=== PATIENT | female | born 1975 | race Caucasian/White ===

== ENCOUNTER 2016-04-22 17:55 | Emergency (ER) | payer BC ==
[2016-04-22] MEDS ORDERED: NS 0.9% 1000 ML* 1,000 ML IV ONE (18:04)
[2016-04-22 18:22] LABS: Hematocrit 40 % (35-47); Hemoglobin 13.4 g/dl (12.0-16.0); Mean Corpuscular HGB Conc 33 g/dl (31-36); Mean Corpuscular Hemoglobin 29 pg (27-31); Mean Corpuscular Volume 87 fL (80-97); Mean Platelet Volume 8 um3 (7.4-10.4); Red Blood Count 4.61 10^6/ul (4.0-5.4); Red Cell Distribution Width 13 % (10.5-15)
[2016-04-22] MEDS ORDERED: Morphine INJ* 4 MG/ML 1 ML CARPUJECT IV ONE (18:34)
[2016-04-22 18:37] LABS: ALT 15 U/L (7-52); AST 18 U/L (13-39); Albumin 3.8 g/dL (3.2-5.2); Alkaline Phosphatase 58 U/L (34-104); Anion Gap 5 mmol/L (2-11); BUN/Creatinine Ratio 15.3 (8-20); Blood Urea Nitrogen 11 mg/dL (6-24); CO2 Carbon Dioxide 23 mmol/L (22-32); Calcium 8.6 mg/dL (8.6-10.3); Chloride 104 mmol/L (101-111); EGFR African American 115.4 (>60); EGFR Non-African American 89.7 (>60); Globulin 2.9 g/dL (2-4); Glucose 172 mg/dL (70-100); Lipase 13 U/L (11.0-82.0); Potassium 3.4 mmol/L (3.5-5.0); Sodium 132 mmol/L (133-145); Total Protein 6.7 g/dL (6.4-8.9)
--- NOTE | 2016-04-22 18:41 | ED ---
Abdominal Pain/Female - HPI Summary HPI Summary: 40F presents with LLQ pain starting today. She admits to nausea and vomiting. Had one episode of diarrhea today. She admits to fever of 100. She took ibuprofen at 10am. She states the pain is similar to when she had a ruptured ovarian cyst in the past. She denies any recent antibiotic use. She denies any one else with similar symptoms. She denies any blood in her urine or stool, dysuria, or vaginal discharge. She denies any history of STDs. - History of Current Complaint Chief Complaint: EDAbdPain Stated Complaint: ABD PAIN Time Seen by Provider: 04/22/16 18:03 Allergies/Adverse Reactions: Allergies Allergy/AdvReac Type Severity Reaction Status Date / Time Rofecoxib [From Vioxx] Allergy Unknown Verified 12/30/11 19:42 Reaction Details PMH/Surg Hx/FS Hx/Imm Hx Endocrine/Hematology History: Denies: Hx Anticoagulant Therapy GI History: Reports: Other GI Disorders - ovarian cyst - Cancer History Hx Chemotherapy: No Hx Radiation Therapy: No Infectious Disease History: No Infectious Disease History: Denies: Traveled Outside the [place] in Last 30 Days - Family History Known Family History: Positive: Cardiac Disease - Social History Alcohol Use: Weekly Substance Use Type: Reports: None Smoking Status (MU): Never Smoked Tobacco Review of Systems Negative: Fever Negative: Chest Pain Negative: Shortness Of Breath Positive: Abdominal Pain - LLQ, Vomiting, Diarrhea, Nausea All Other Systems Reviewed And Are Negative: Yes Physical Exam Triage Information Reviewed: Yes Vital Signs On Initial Exam: Initial Vitals Temp Pulse Resp BP Pulse Ox 98.4 F 96 16 118/53 97 04/22/16 17:59 04/22/16 17:59 04/22/16 17:59 04/22/16 17:59 04/22/16 17:59 Vital Signs Reviewed: Yes Appearance: Positive: Well-Appearing Skin: Positive: Warm, Dry Head/Face: Positive: Normal Head/Face Inspection Eyes: Positive: Normal, Conjunctiva Clear ENT: Positive: Normal ENT inspection, Pharynx normal, TMs normal Respiratory/Lung Sounds: Positive: Clear to Auscultation, Breath Sounds Present Cardiovascular: Positive: Normal, RRR Abdomen Description: Positive: Soft, Other: - tenderness to LLQ, no rebound tenderness. Negative: Guarding Bowel Sounds: Positive: Present - [place] Coma Scale Coma Scale Total: 15 Diagnostics - Vital Signs Vital Signs Temp Pulse Resp BP Pulse Ox 04/22/16 18:39 16 04/22/16 18:30 93 106/74 100 04/22/16 18:07 90 99 04/22/16 17:59 98.4 F 96 16 118/53 97 - Laboratory Lab Results: Lab Results 04/22/16 04/22/16 Range/Units 18:10 18:10 WBC 11.0 H (3.5-10.8) 10^3/ul RBC 4.61 (4.0-5.4) 10^6/ul Hgb 13.4 (12.0-16.0) g/dl Hct 40 (35-47) % MCV 87 (80-97) fL MCH 29 (27-31) pg MCHC 33 (31-36) g/dl RDW 13 (10.5-15) % Plt Count 321 (150-450) 10^3/ul MPV 8 (7.4-10.4) um3 Neut % (Auto) 91.0 H (38-83) % Lymph % (Auto) 4.6 L (25-47) % [place] % (Auto) 4.1 (1-9) % Eos % (Auto) 0.1 (0-6) % Baso % (Auto) 0.2 (0-2) % Absolute Neuts (auto) 10.0 H (1.5-7.7) 10^3/ul Absolute Lymphs (auto) 0.5 L (1.0-4.8) 10^3/ul Absolute Monos (auto) 0.5 (0-0.8) 10^3/ul Absolute Eos (auto) 0 (0-0.6) 10^3/ul Absolute Basos (auto) 0 (0-0.2) 10^3/ul Absolute Nucleated RBC 0 10^3/ul Nucleated RBC % 0 Sodium 132 L (133-145) mmol/L Potassium 3.4 L (3.5-5.0) mmol/L Chloride 104 (101-111) mmol/L Carbon Dioxide 23 (22-32) mmol/L Anion Gap 5 (2-11) mmol/L BUN 11 (6-24) mg/dL Creatinine 0.72 (0.51-0.95) mg/dL Est GFR ( Amer) 115.4 (>60) Est GFR (Non-Af Amer) 89.7 (>60) BUN/Creatinine Ratio 15.3 (8-20) Glucose 172 H (70-100) mg/dL Calcium 8.6 (8.6-10.3) mg/dL Total Bilirubin 0.60 (0.2-1.0) mg/dL AST 18 (13-39) U/L ALT 15 (7-52) U/L Alkaline Phosphatase 58 (34-104) U/L C-React Prot High Sens 22.00 mg/L Total Protein 6.7 (6.4-8.9) g/dL Albumin 3.8 (3.2-5.2) g/dL Globulin 2.9 (2-4) g/dL Albumin/Globulin Ratio 1.3 (1-3) Lipase 13 (11.0-82.0) U/L Beta HCG, Quant Pending Result Diagrams: 04/22/16 18:10 04/22/16 18:10 Lab Statement: Any lab studies that have been ordered have been reviewed, and results considered in the medical decision making process. Re-Evaluation - Re-Evaluation First Eval Re-Evaluation Time: 20:29 Change: Improved Comment: patient pain improved, discussed labs Abdominal Pain Fem Course/Dx - Course Course Of Treatment: 40F presents with LLQ pain today. also admits to fever, n/ v/d. took ibuprofen early today for a fever. on exam tender to LLQ, labs elevated WBC and crp, did CT to rule out diveriticulitis, CT normal, explained results to patient, patient understands and agrees with plan - Diagnoses Differential Diagnosis: Positive: Appendicitis, Constipation, Diverticulitis Provider Diagnoses: Abdominal pain Discharge - Discharge Plan Condition: Good Disposition: HOME Prescriptions: Ondansetron ODT TAB* [Zofran Odt TAB*] 4 mg PO Q6H PRN #15 tab.odt PRN Reason: Nausea Patient Education Materials: Acute Abdominal Pain (ED) Referrals: Jr Alaniz MD [Primary Care Provider] - Additional Instructions: Your pain is not caused by any surgical emergency Take zofran every 6 hours as needed for nausea Drink small amounts of fluid as tolerated When able to eat follow BRAT diet: Bananas, rice, applesauce, toast Take ibuprofen or Tylenol for pain as needed every 6 hours Follow up with primary within 5 days Return to ED if develop any new or worsening symptoms
[2016-04-22] MEDS ORDERED: Iohexol 300* (CONTRAST) 10 ML SDV IV ONE (19:29)
--- NOTE | 2016-04-22 21:04 | RAD ---
INDICATION: Left lower quadrant abdominal pain. COMPARISON: Comparison is made with a prior CT of the abdomen and pelvis from December 30, 2011. TECHNIQUE: A CT scan of the abdomen and pelvis was performed with intravenous and oral contrast following intravenous injection of 105 ml of Omnipaque 300 nonionic contrast. Contiguous axial sections were obtained from the lung bases through the symphysis pubis. Images were reconstructed in the coronal and sagittal planes. FINDINGS: There is mild dependent bilateral lower lobe subsegmental atelectasis. No pleural effusion is present. The liver and spleen are within normal limits in size without significant focal abnormality. No calcified gallstones are seen. The pancreas appears to be within normal limits in size. The kidneys and adrenal glands are normal in size. No hydronephrosis is seen. No significant focal renal abnormality is seen. The aorta is normal in caliber and demonstrates homogeneous contrast opacification. No significant enlarged retroperitoneal lymph nodes are seen. The stomach, small and large bowel appear nondistended. The appendix is within normal limits. There is mild sigmoid diverticulosis without evidence for diverticulitis. The uterus is anteverted and normal in size. No ovarian cysts are seen. There is a small amount of free intraperitoneal fluid present within the cul-de-sac. No free intraperitoneal air is seen. No significant focal osseous abnormality is seen. IMPRESSION: 1. SMALL AMOUNT OF FREE INTRAPERITONEAL FLUID IN THE CUL-DE-SAC. 2. THE APPENDIX IS NOT VISUALIZED, OTHERWISE UNREMARKABLE STUDY.
[2016-04-22] MEDS ORDERED: Ondansetron ODT TAB* 4 MG PO ONE (21:20)
[2016-04-22 21:48] VITALS: BP 119/55
== END 2016-04-22 21:50 | disposition home or self-care (01) ==
LOC: ED 17:55
DX: R10.32 Left lower quadrant pain (principal)
CPT/HCPCS: 36415; 74177; 80053; 83690; 84702; 85025; 86141; 96360; 96374; 99283; A9270-GY; J2270; Q9967

== ENCOUNTER 2016-06-02 08:22 | Emergency (ER) | payer BC ==
[2016-06-02 08:38] VITALS: BP 121/70
--- NOTE | 2016-06-02 08:52 | UC ---
Respiratory Complaint HPI - History of Current Complaint Hx Obtained From: Patient Hx Last Menstrual Period: 05/04/16 ?: No Onset/Duration: Gradual Onset - has felt nasal congestion over past 10 days, has worsened everyday for past 7 days. now cannot taste, has burning in sinuses , post nasal drip and cough. sinus pain worse when lies flat Timing: Constant Severity Initially: Mild Severity Currently: Moderate Character: Cough: Nonproductive Aggravating Factors: Exertion, Recumbent Position Alleviating Factors: Nothing - treid OTC cold med Associated Signs And Symptoms: Positive: Nasal Congestion, Sinus Discomfort. Negative: Dyspnea <Denise Pichardo - Last Filed: 06/02/16 08:47> <Kendal Putnam - Last Filed: 06/02/16 10:22> - History of Current Complaint Chief Complaint: UCRespiratory Stated Complaint: SINUS ISSUE - Allergies/Home Medications Allergies/Adverse Reactions: Allergies Allergy/AdvReac Type Severity Reaction Status Date / Time Rofecoxib [From Vioxx] Allergy Unknown Verified 06/02/16 08:38 Reaction Details Home Medications: Home Medications Vivance 06/02/16 [History] PMH/Surg Hx/FS Hx/Imm Hx Previously Healthy: Yes Endocrine History Of: Denies: Diabetes Cardiovascular History Of: Denies: Cardiac Disorders Respiratory History Of: Denies: Asthma - ADHD Cancer History Of: Denies: Breast Cancer Other History Of: Negative For: Anticoagulant Therapy - Surgical History Surgical History: Yes Surgery Procedure, Year, and Place: Left Wrist - Family History Known Family History: Positive: Cardiac Disease - Social History Occupation: Employed Full-time Lives: With Family Alcohol Use: Weekly Substance Use Type: None Smoking Status (MU): Never Smoked Tobacco <Denise Pichardo - Last Filed: 06/02/16 08:47> Review of Systems Constitutional: Fever, Fatigue Skin: Negative Eyes: Negative ENT: Nasal Discharge - dark yellow Respiratory: Cough Cardiovascular: Negative Gastrointestinal: Negative Psychological: Negative All Other Systems Reviewed And Are Negative: Yes <Denise Pichardo - Last Filed: 06/02/16 08:47> Physical Exam Triage Information Reviewed: Yes Appearance: No Pain Distress, Well-Nourished, Ill-Appearing - appears fatigued, congested Vital Signs: Initial Vital Signs Temp 97.8 F 06/02/16 08:30 Pulse 78 06/02/16 08:30 Resp 18 06/02/16 08:30 BP 121/70 06/02/16 08:30 Pulse Ox 100 06/02/16 08:30 Vital Signs Reviewed: Yes Eye Exam: Normal Eyes: Positive: Conjunctiva Clear ENT: Positive: Pharynx normal, TMs normal, Other: - facial pain, nasal congestion, thick white PND, Neck: Positive: No Lymphadenopathy Respiratory: Positive: Lungs clear - dry cough occasionally Cardiovascular Exam: Normal Neurological Exam: Normal Psychological Exam: Normal Skin Exam: Normal <Denise Pichardo - Last Filed: 06/02/16 08:47> Vital Signs: Initial Vital Signs Temp 97.8 F 06/02/16 08:30 Pulse 78 06/02/16 08:30 Resp 18 06/02/16 08:30 BP 121/70 06/02/16 08:30 Pulse Ox 100 06/02/16 08:30 <Kendal Putnam - Last Filed: 06/02/16 10:22> UC Diagnostic Evaluation - Laboratory O2 Sat by Pulse Oximetry: 100 <Denise Pichardo - Last Filed: 06/02/16 08:47> Respiratory Course/Dx - Differential Dx/Diagnosis Differential Diagnosis/HQI/PQRI: Bronchitis, Lower Resp Infection, Sinusitis Provider Diagnoses: sinusitis <Denise Pichardo - Last Filed: 06/02/16 08:47> Discharge <Denise Pichardo - Last Filed: 06/02/16 08:47> <Kendal Putnam - Last Filed: 06/02/16 10:22> - Discharge Plan Condition: Stable Disposition: HOME Prescriptions: Amoxicillin/Clavulanate TAB* [Augmentin TAB 875*] 875 mg PO BID #20 tab Fluconazole [Diflucan 150 MG (NF)] 150 mg PO ONCE #2 tab Referrals: Jr Alaniz MD [Primary Care Provider] - 3 Days (if no better) Additional Instructions: use sudafed (from behind the counter) as directed for nasal congestion drink plenty of fluids rest Attestation Statement User Type: Provider - I was available for consult. This patient was seen by the [facility]. The patient was not presented to, seen by, or examined by me. <Kendal Putnam - Last Filed: 06/02/16 10:22>
== END 2016-06-02 09:03 | disposition home or self-care (01) ==
LOC: UCEAST 08:22
DX: J32.9 Chronic sinusitis, unspecified (principal)
CPT/HCPCS: 99212; G0463

== ENCOUNTER 2018-07-23 09:18 | Emergency (ER) | payer BC ==
--- NOTE | 2018-07-23 10:51 | UC ---
Lower Extremity/Ankle HPI - HPI Summary HPI Summary: 42-year-old female presents with complaints of 3 week history of left foot pain. States pain is fairly mild at rest however worsens with any weightbearing or walking. Pain has been progressively worsening over the last 3 weeks. No known injury. States the foot tends to swell up by the end of the day and improves overnight. Denies erythema, ecchymosis, numbness, or tingling. - History of Current Complaint Chief Complaint: UCLowerExtremity Stated Complaint: ANKLE INJURY Time Seen by Provider: 07/23/18 10:25 Hx Obtained From: Patient Hx Last Menstrual Period: 07/16/18 Pain Intensity: 2 - Allergies/Home Medications Allergies/Adverse Reactions: Allergies Allergy/AdvReac Type Severity Reaction Status Date / Time rofecoxib [From Vioxx] Allergy Abdominal Verified 07/23/18 09:35 Pain Home Medications: Home Medications ALPRAZolam TAB* [Xanax TAB*] 0.25 mg PO Q6H PRN 07/23/18 [History Confirmed 07/06] PMH/Surg Hx/FS Hx/Imm Hx Previously Healthy: Yes - Denies significant PMH Psychological History: Anxiety Other History Of: Negative For: Anticoagulant Therapy - Surgical History Surgical History: Yes Surgery Procedure, Year, and Place: Left knee x2 - Family History Known Family History: Positive: Cardiac Disease - Social History Occupation: Employed Full-time Lives: Alone Alcohol Use: None Substance Use Type: None Smoking Status (MU): Never Smoked Tobacco Review of Systems All Other Systems Reviewed And Are Negative: Yes Constitutional: Positive: Negative Skin: Negative: Rash, Bruising Respiratory: Positive: Negative Cardiovascular: Positive: Negative Gastrointestinal: Positive: Negative Genitourinary: Positive: Negative Motor: Negative: Weakness Neurovascular: Negative: Decreased Sensation Musculoskeletal: Positive: Other: - See HPI Neurological: Positive: Negative Is Patient Immunocompromised?: No Physical Exam - Summary Physical Exam Summary: GENERAL APPEARANCE: Well developed, well nourished, alert and cooperative, and appears to be in no acute distress. CARDIAC: Normal S1 and S2. No S3, S4 or murmurs. Rhythm is regular. There is no peripheral edema, cyanosis or pallor. Extremities are warm and well perfused. Capillary refill is less than 2 seconds. Peripheral pulses intact. LUNGS: Clear to auscultation without rales, rhonchi, wheezing or diminished breath sounds. ABDOMEN: Positive bowel sounds. Soft, nondistended, nontender. No guarding or rebound. No masses or hepatosplenomegally. MUSKULOSKELETAL: Normal muscular development. Limping gait. EXTREMITIES: Mild tenderness to the lateral aspect of the left forefoot without gross deformity, erythema, ecchymosis, or edema. Circulation and sensation intact. SKIN: Skin normal color, texture and turgor with no lesions or eruptions. Triage Information Reviewed: Yes Vital Signs: Initial Vital Signs Temp 98 F 07/23/18 09:36 Pulse 69 07/23/18 09:36 Resp 16 07/23/18 09:36 BP 124/86 07/23/18 09:36 Pulse Ox 98 07/23/18 09:36 Vital Signs Reviewed: Yes Diagnostics - Radiology No standard instances Radiology Interpretation Completed By: Radiologist Summary of Radiographic Findings: Order Information: FOOT LEFT 3+ VWS. Accession Number: [id number]. CPT: 10348. Indication: LEFT ankle and foot foot pain and swelling following injury. Comparison: No relevant prior exams available on the [facility] [place]. Technique: AP, lateral, and oblique views LEFT foot. Report: Negative for fracture, findings of stress reaction, articular malalignment, or arthropathic change. Unremarkable soft tissue contours. IMPRESSION: #. Negative exam. Lower Extremity Course/Dx - Course Course Of Treatment: 42-year-old female presents with complaints of 3 week history of left foot pain. States pain is fairly mild at rest however worsens with any weightbearing or walking. Pain has been progressively worsening over the last 3 weeks. No known injury. States the foot tends to swell up by the end of the day and improves overnight. Denies erythema, ecchymosis, numbness, or tingling. Afebrile. Vital signs stable. Patient had mild tenderness to the lateral aspect of the left forefoot without gross deformity, erythema, ecchymosis, or edema. Circulation and sensation intact. Remainder of exam was unremarkable. X-ray of the foot showed no acute pathology. Patient was placed in a cam boot. Circulation and sensation were intact pre-and post-application. Recommend conservative treatment with [id number] analgesics and RICE. She is to follow-up with orthopedic surgery in one week. Anticipatory guidance and warning symptoms reviewed with the patient. Verbalizes understanding and agrees with plan of care. - Differential Dx/Diagnosis Differential Diagnosis/HQI/PQRI: Contusion, Gout, Sprain, Tenosynovitis Provider Diagnosis: Left foot pain Discharge - Sign-Out/Discharge Documenting (check all that apply): Patient Departure All imaging exams completed and their final reports reviewed: Yes - Discharge Plan Condition: Stable Disposition: HOME Patient Education Materials: Foot Sprain (ED) Referrals: Jr Alaniz MD [Primary Care Provider] - Migdalia Olea MD [Medical Doctor] - 7 Days (Call for appointment) Additional Instructions: The x-ray performed in the clinic today showed no evidence of a fracture. Rest the foot as much as possible. You may continue to walk and bear weight as tolerated. Wear the CAM boot that was provided to you in the clinic. You may remove at bedtime and to shower but should wear at all other times. Apply ice to the affected area for 15-20 minutes at least 4 times a day to help with the pain and swelling. Elevate the foot to help reduce swelling. Take acetaminophen (Tylenol) or ibuprofen (Advil, Motrin) according to directions as needed for pain. Follow up with orthopedic surgery in 7 days for re-evaluation. Call for appointment. Seek immediate medical attention if you have severe pain not managed with pain medication, you are unable to walk or bear any weight, develop numbness or tingling in the foot or toes, or have any worsening of symptoms. - Billing Disposition and Condition Condition: STABLE Disposition: Home
[2018-07-23 11:58] VITALS: BP 145/90
== END 2018-07-23 11:55 | disposition home or self-care (01) ==
LOC: UCEAST 09:18
DX: M79.672 Pain in left foot (principal); F41.9 Anxiety disorder, unspecified; Z88.8 Allergy status to other drugs, medicaments and biological substances
CPT/HCPCS: 99212; G0463